=== PATIENT | female | born 2000 | race Caucasian/White ===

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

== ENCOUNTER 2021-03-16 12:59 | Emergency (ER) | payer MEDICAID ==
[~2021-03-16 12:59] MED LIST changes: -SULF1TAB35 PO; +SULF1TAB38 PO
[2021-03-16 13:00] VITALS: BP 130/83
--- NOTE | 2021-03-16 13:28 | ED Cough/URI ---
General Chief Complaint: COVID19 Suspect/Confirmed Stated Complaint: COUGH,STUFFY NOSE,VIRGEN,FEVER,CHILLS Nursing Triage Note: ARRIVED VIA AMB WITH COMPLAINTS OF COUGH, HEADACHE, AND CONGESTION FOR ABOUT A WEEK. NEG COVID ON THE 3RD DAY. WAS GIVEN TESSLON PEARLS WHICH IS NOT HELPONG. WANTS A ANTIBIOTIC AND A GOOD COLD AND FLU MED. Source: patient Exam Limitations: no limitations History of Present Illness Date Seen by Provider: Mar 16, 2021 Time Seen by Provider: 13:26 Initial Comments Patient is a 20-year-old female presents ED with cough, headache, and congestion for the past week. Patient states she did have a negative Covid swab. Was placed on Tessalon Perles without much improvement. She reports worsening cough feels like her ribs are shifting. She reports nausea with vomiting with the cough. Denies any diarrhea, abdominal pain. Headache, nasal congestion, scratchy throat. Possible exposure to cough. Not concern for without any urinary symptoms. Allergies and Home Medications Allergies Coded Allergies: No Known Drug Allergies (Unverified , 03/12/10) Patient Home Medication List Home Medication List Reviewed: Yes Fluoxetine HCl (Prozac) 20 Mg Capsule, 20 MG PO DAILY, (Reported) Entered as Reported by: NEREIDA RICARDO on 03/21/20 1056 Pantoprazole Sodium (Protonix) 40 Mg Tablet.dr, 40 MG PO DAILY, (Reported) Entered as Reported by: NEREIDA RICARDO on 03/21/20 1056 Prednisone (Prednisone) 50 Mg Tab, 50 MG PO DAILY Prescribed by: BERHANE SOUSA on 03/16/21 1406 Review of Systems Review of Systems Constitutional: No chills, No diaphoresis, No dizziness, No fever, No malaise EENTM: nose congestion; No blurred vision, No eye pain, No tearing, No vision loss, No mouth swelling, No throat swelling Respiratory: cough Gastrointestinal: No abdominal pain, No diarrhea, No nausea, No vomiting Genitourinary: No see HPI, No decreased output Musculoskeletal: No see HPI, No back pain, No muscle pain, No muscle stiffness Skin: No change in color, No change in hair/nails All Other Systems Reviewed Negative Unless Noted: Yes Past Fhsoabs-Iglozw-Ilcuny Hx Patient Social History Tobacco Use?: No Substance use?: No Alcohol Use?: No Immunizations Up To Date Tetanus Booster (TDap): Unknown PED Vaccines UTD: Yes Second COVID19 Vaccination Ion: 09/27 COVID19 Vaccine Air Boatswain: ALONDRA Seasonal Allergies Seasonal Allergies: Yes Past Medical History Surgeries: Yes (LEFT KNEE SCOPE) Orthopedic Respiratory: No Cardiac: No Neurological: No Reproductive 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 oz. 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 nml as tested, no motor/sensory deficits, alert, normal mood/affect, oriented x 3 Skin: normal color, warm/dry Progress/Results/Core Measures Suspected Sepsis SIRS Temperature: Pulse: 99 Respiratory Rate: 16 Blood Pressure 130 /83 Mean: 99 Results/Orders Lab Results Laboratory Tests Test 03/16/21 13:13 Range/Units Influenza Type A Antigen NEGATIVE NEGATIVE Influenza Type B Antigen NEGATIVE NEGATIVE SARS-CoV-2 RNA (RT-PCR) Detected Negative My Orders Orders - ROJELIO PHAN PA Influenza A & B Antigens (03/16/21 13:13) Covid 19 Inhouse Test (03/16/21 13:24) Chest 1 View, Ap/Pa Only (03/16/21 13:25) Vital Signs/I&O 03/16/21 13:00 Temp 35.1 Pulse 99 Resp 16 B/P (MAP) 130/83 (99) Pulse Ox 98 O2 Delivery Room Air Capillary Refill : Less Than 3 Seconds Blood Pressure Mean: 99 Departure Communication (Admissions) Influenza negative. covid positive. Chest x-ray negative for pneumonia. Subtle wheezing noted but did improve after cough. Patient current on Tessalon Perles. Will discharge with short burst steroids for the cough, wheezing. She does have an inhaler at home. Continue with hydration. Provided work note if positive for Covid quarantine. Return precautions were discussed with patient. Follow-up with your PCP in 2 to 3 days for reevaluation. Impression Primary Impression: Viral syndrome Disposition: HOME, SELF-CARE Condition: Stable Departure-Patient Inst. Decision time for Depature: 14:05 Referrals: [facility] (PCP/Family) Primary Care Physician Patient Instructions: Viral Syndrome (DC) Scripts Prednisone (Prednisone) 50 Mg Tab 50 MG PO DAILY for 5 Days, #5 TAB Prov: ROJELIO PHAN 03/16/21 ROJELIO PHAN Mar 16, 2021 13:28
--- NOTE | 2021-03-16 14:00 | Diagnostic Imaging Report ---
INDICATION: Cough, headache, congestion x1 week.. TECHNIQUE: Single view chest 1:43 PM. CORRELATION STUDY: 09/06/2013 FINDINGS: The heart size, mediastinal configuration and pulmonary vascularity are within normal limits. The lungs are clear with no consolidating infiltrate. There is no significant effusion or pneumothorax. There is presence of mild scoliotic curvature of the visualized spine. IMPRESSION: 1. Negative for acute abnormality of the chest. Dictated by: Dictated on workstation # [id number]
[2021-03-16] MEDS ORDERED: PRD50T PO (14:06)
== END 2021-03-16 14:16 | disposition home or self-care (01) ==
LOC: EDUNIT# 12:59 → ER 13:01
DX: U07.1 COVID-19 (principal); F41.9 Anxiety disorder, unspecified; F32.9 Major depressive disorder, single episode, unspecified; Z79.899 Other long term (current) drug therapy
CPT/HCPCS: 71045; 87636; 87804

== ENCOUNTER → 2022-10-17 | Outpatient (CLI) | payer MEDICAID ==
[~2022-10-17] MED LIST changes: +LAMO25TA75 PO; +LURA40TA2 PO; +PRAZ1CAP2 PO; +PRD50T PO; +TRZ50T PO
--- NOTE | 2022-10-17 13:15 | Diagnostic Imaging Report ---
PROCEDURE: Pelvic comp/transvaginal sonogram. TECHNIQUE: Complete transabdominal and transvaginal pelvic ultrasound was performed. In addition, limited pelvic Doppler was performed. INDICATION: Ovarian cyst and left-sided pelvic pain. FINDINGS: Uterus is anteverted measuring 7.9 x 3.5 x 3.7 cm. Endometrium is 7 mm in thickness. No myometrial mass is identified. Right ovary measures 4.0 x 2.4 x 3.3 cm, and left ovary measures 3.1 x 1.9 x 2.4 cm. Left ovary contains an approximately 12-13 mm follicle. There appears to be blood flow to the ovaries. No free fluid is detected. IMPRESSION: Unremarkable transabdominal and transvaginal pelvic ultrasound. Dictated by: Dictated on workstation # [id number]
== END ==
LOC: RAD 09:29
PROVIDERS: ATTEND Nurse Practitioner Women's Health
DX: N83.202 Unspecified ovarian cyst, left side (principal)
CPT/HCPCS: 76830; 76856